=== PATIENT | female | born 1995 | race Caucasian/White ===

== ENCOUNTER 2020-03-12 01:41 | Inpatient (IN) ==
[2020-03-12 02:04] VITALS: BMI 37.5
[2020-03-12 02:13] LABS: AMNISURE ROM TEST THERE IS A RUPTURE (NO RUPTURE)
[2020-03-12] MEDS ORDERED: BETADINE SOLN ONE (02:33)
[2020-03-12] MEDS ORDERED: D5 1/2 NS 1000 ML 1,000 ML IV ONE (02:33)
[2020-03-12] MEDS ORDERED: PITOCIN ONE (02:33)
[2020-03-12] MEDS ORDERED: D5LR 1L W PITOCIN 10 UNITS/L 10 UNITS/1,000 ML BAG IV ONE (02:34)
[2020-03-12] MEDS ORDERED: AMPICILLIN VIAL 2 GRAM ONE (02:34)
[2020-03-12] MEDS ORDERED: D5 1/2 NS 1L W PITOCIN 20 UNITS/L 20 UNITS/1,000 ML BAG IV ONE (02:34)
[2020-03-12] MEDS ORDERED: NS 100 ML IV 100 ML IV ONE ×2 (02:35→02:54)
[2020-03-12] MEDS ORDERED: AMPICILLIN VIAL 1 GRAM ONE (02:54)
[2020-03-12] MEDS: LR 1000 ML IV 1,000 ML IV ONE (02:55)
[2020-03-12] MEDS ORDERED: REGLAN INJ 10 MG VIAL IVP PRN (03:20)
[2020-03-12] MEDS ORDERED: MORPHINE SULFATE INJ 2 MG INJ IVP PRN (03:20)
[2020-03-12] MEDS ORDERED: PITOCIN IVP ONE (03:20)
[2020-03-12] MEDS ORDERED: D5LR 1L W PITOCIN 10 UNITS/L 10 UNITS/1,000 ML BAG IV PRN (03:20)
[2020-03-12] MEDS ORDERED: PHENERGAN INJ 25 MG IM PRN ×2 (03:20→06:48)
[2020-03-12 03:52] LABS: BASOPHILS # (AUTO) 0.1 X10^3/uL (0.0-0.1); BASOPHILS % (AUTO) 0.4 % (0.2-1.0); EOSINOPHILS # (AUTO) 0.1 x10^3/uL (0.0-0.2); EOSINOPHILS % (AUTO) 0.4 % (0.9-2.9); HEMATOCRIT 37.8 % (36.0-47.0); HEMOGLOBIN 12.7 g/dL (12.0-16.0); LYMPHOCYTES # (AUTO) 1.7 X10^3/uL (1.3-2.9); LYMPHOCYTES % (AUTO) 8.9 % (21.0-51.0); MEAN CORPUSCULAR HEMOGLOBIN 28.9 pg (27.0-34.0); MEAN CORPUSCULAR HGB CONC 33.5 g/dL (33.0-35.0); MEAN CORPUSCULAR VOLUME 86.3 fL (80.0-100.0); MEAN PLATELET VOLUME 8.8 fL (7.4-11.0); MONOCYTES % (AUTO) 5.1 % (0.0-13.0); NEUTROPHILS # (AUTO) 16.6 x10^3/uL (2.2-4.8); NEUTROPHILS % (AUTO) 85.2 % (42.0-75.0); PLATELET COUNT 208 X10^3/uL (150.0-450.0); RED BLOOD COUNT 4.38 X10^6/uL (3.5-5.4); RED CELL DISTRIBUTION WIDTH 13.7 % (11.6-16.5); WHITE BLOOD COUNT 19.5 X10^3/uL (3.6-10.0)
[2020-03-12 03:54] LABS: BLOOD UREA NITROGEN 12 mg/dL (7-18); CALCIUM 8.8 mg/dL (8.5-10.1); CARBON DIOXIDE 18.2 mmol/L (21-32); CHLORIDE 104 mmol/L (98-107); CREATININE 0.69 mg/dL (0.55-1.02); SODIUM 137 mmol/L (136-145); eGFR NON BLACK RACES > 60 (>60)
[2020-03-12] MEDS ORDERED: D5 1/2 NS 1000 ML 1,000 ML IV SCH (04:00)
[2020-03-12] MEDS ORDERED: XYLOCAINE 1 % (PLAIN) ONE (04:33)
[2020-03-12] MEDS: TORADOL 30 MG VIAL IVP SCH ×4 (04:47→21:52)
[2020-03-12] MEDS ORDERED: TORADOL 30 MG VIAL ONE (04:50)
[2020-03-12] MEDS ORDERED: STADOL INJ ONE ×2 (04:52→05:12)
[2020-03-12] MEDS ORDERED: MOTRIN TAB 800 MG PO PRN ×2 (06:48→07:53)
[2020-03-12] MEDS ORDERED: D5 1/2 NS 1000 ML 1,000 ML with PITOCIN 20 UNITS IV SCH ×2 (07:00)
[2020-03-12] MEDS ORDERED: AMPICILLIN VIAL 1 GRAM 1 G in NS 50 ML IV + SPIKE MINIBAG* 50 ML IV SCH (07:21)
[2020-03-12] MEDS ORDERED: ZOFRAN INJ 4 MG VIAL IVP PRN (07:52)
[2020-03-12] MEDS ORDERED: MILK OF MAGNESIA PO PRN (07:53)
[2020-03-12] MEDS ORDERED: DERMOPLAST PAIN RELIEF SPRAY TOP PRN (07:53)
[2020-03-12] MEDS: PERCOCET TAB 5/325 MG PO PRN ×2 (08:22→16:07)
[2020-03-12] MEDS: PRENATAL PLUS PO SCH (09:40)
[2020-03-12] MEDS ORDERED: AMBIEN PO PRN (21:00)
[2020-03-12] MEDS ORDERED: COLACE CAP 100 MG PO SCH (21:00)
[2020-03-13] MEDS ORDERED: TORADOL 30 MG VIAL IVP PRN (04:30)
[2020-03-13] MEDS: TORADOL 30 MG VIAL IVP SCH (05:46)
[2020-03-13 06:38] LABS: HEMATOCRIT 26.1 % (36.0-47.0)
[2020-03-13] MEDS: PRENATAL PLUS PO SCH (09:00)
--- NOTE | 2020-03-13 09:05 | NOTE.PROOB ---
progress Note OB- Subjective Data Subjective: No complaints, decreased lochia. Tolerating regular diet. No N/V. Ambulating well. No dysuria. Objective Data Result Diagrams: 03/13/20 06:08 03/12/20 03:30 Objective Data: CV= RRR no MRG Lungs=CTA Bilaterally Abd=(+) BS, soft, NTND, Fundus firm/NT/ at 3 cm below umbilicus. Ext=no edema, NT, no cords Assessment Assessment: routine PP care Plan (1) (spontaneous vaginal delivery):
[2020-03-13 09:53] VITALS: BP 121/73
== END 2020-03-13 11:45 | disposition home or self-care (01) | DRG 768 ==
LOC: ER 01:42 → LD 02:40 → OBS 07:45
PROVIDERS: ADMIT Obstetrics & Gynecology; ATTEND Obstetrics & Gynecology
DX: O70.20 Third degree perineal laceration during delivery, unspecified; Z3A.38 38 weeks gestation of pregnancy; Z37.0 Single live birth; O70.1 Second degree perineal laceration during delivery; B95.1 Streptococcus, group B, as the cause of diseases classified elsewhere; Z20.822 Contact with and (suspected) exposure to COVID-19; O99.824 Streptococcus B carrier state complicating childbirth